=== PATIENT | male | born 1965 | race Caucasian/White ===

== ENCOUNTER 2020-11-20 02:50 | Emergency (ER) | payer OTHER, SELFPAY ==
[2020-11-20 02:51] VITALS: BP 147/85; PULSE 95; RESP 16; TEMP 36.7; O2SAT 98; BMI 33.7
--- NOTE | 2020-11-20 03:12 | ED.VIS.GEN ---
History of Present Illness Chief Complaint: Eye Problem Narrative: This patient is a 55-year-old male who presents with left thigh pain. He was watching a movie 2 nights ago and rubbed his eye. Since that time he developed some sharp stabbing pain and light sensitivity. No history of prior similar symptoms. He wears reading glasses. No contacts. He complains of watering/tearing. No discharge. No recent illness. He denies medical history. Past Medical History - Allergies and Home Meds Allergies/Adverse Reactions: Allergies No Known Allergies Allergy (Verified 11/20/20 02:53) Primary Care Physician: Tay Hays MD [Primary Care Provider] - Past Medical History: None Smoking Status: Never smoker Review of Systems All systems negative except as indicated General: Denies: Fever ENT: Denies: Rhinorrhea Cardiovascular: Denies: Chest pain Respiratory: Denies: Dyspnea Gastrointestinal: Denies: Nausea, Vomiting Musculoskeletal: Denies: Myalgias, Arthralgias Skin: Denies: Rash Neurological: Denies: Headache Physical Exam Vital Signs/Narrative: Vital Signs Temp Pulse Resp BP Pulse Ox 11/20/20 02:51 98.0 F 95 16 147/85 H 98 Inital Vital Signs reviewed: Yes General: Well nourished Head: Normocephalic Eyes: Perrl, EOMI, - - Eyelids were everted, no foreign body, anterior chamber deep and quiet, slit-lamp examination shows a probable corneal abrasion at the center of the cornea I do not appreciate an obvious ulcer Cardiovascular: Regular rate Respiratory: No distress Skin: Normal color Neurological: Alert Diagnostic/Tx/Re-eval - Medical Decision Making Eyelids were everted, slit-lamp examination was performed. No obvious ulceration. Examination is limited as there is no fluorescein available to assess for dye uptake however I do believe there is a corneal abrasion. Patient was given ophthalmic back to tracing and discharged with it. He was referred to ophthalmology. He understands return for new or worsening symptoms. The patient was discharged. ED Disposition - Plan for ED Patient: Disposition: Home or Assisted Living Diagnosis: Corneal abrasion Instructions: ED Corneal Abrasion Referrals: Tya Hays MD [Primary Care Provider] - Elias Castaneda MD [STAFF PHYSICIAN] -
[2020-11-20] MEDS: Tetracaine 0.5% Ophthalmic Bottle 1 DRP LEFT EYE (03:21)
[2020-11-20 03:27] VITALS: BP 147/85; PULSE 95; RESP 16; O2SAT 98
== END 2020-11-20 03:28 | disposition home or self-care (01) ==
LOC: ED 03:25
PROVIDERS: Emergency Provider Emergency Medicine
DX: S05.02XA Injury of conjunctiva and corneal abrasion without foreign body, left eye, initial encounter (principal); X58.XXXA Exposure to other specified factors, initial encounter; Y93.89 Activity, other specified; Y92.008 Other place in unspecified non-institutional (private) residence as the place of occurrence of the external cause; Y99.8 Other external cause status
CPT/HCPCS: 99282